=== PATIENT | female | born 1990 | race Caucasian/White ===

== ENCOUNTER 2017-09-06 21:29 | Emergency (ER) | payer OTHER ==
[~2017-09-06] VITALS: Ht 162.6 cm; Wt 64.4 kg
[2017-09-06 21:34] VITALS: Ht 162.6 cm; Wt 64.4 kg
[2017-09-06 23:28] VITALS: BP 103/68
== END 2017-09-06 23:51 | disposition home or self-care (01) ==
LOC: ED 21:29
DX: J03.90 Acute tonsillitis, unspecified (principal); J98.01 Acute bronchospasm; Z86.2 Personal history of diseases of the blood and blood-forming organs and certain disorders involving the immune mechanism; Z98.890 Other specified postprocedural states
CPT/HCPCS: J0561; J1100; J1170; J1885; J7620; Q0162